=== PATIENT | female | born 1945 | race Caucasian/White ===

== ENCOUNTER → 2016-09-17 | Outpatient (CLI) | payer MEDICARE, OTHER ==
[~2016-09-17] MED LIST: AMITRYPTYLINE; ANEXSIA 7.5/3251 TA1 PO; ANTI-DIARRHEAL2 M1 PO; ATORVASTATIN CA10 MG PO; AZATHIOPRINE50 M1 PO; BACTRIM DS TABL1 TA1 PO; CARVEDILOL6.25 MG PO; DELTASONE20 MG PO; DESYREL50 MG PO; FLORASTOR250 M1 PO; KEFLEX500 MG PO; LIPITOR; LISINOPRIL5 MG; MELATIN3 MG PO; NAPROSYN500 MG PO; NAPROXEN PO; NITROSTAT0.4 MG SL; NORCO1 TAB 10/3; NORCO1 TAB 10/3 PO; OMEPRAZOLE40 M1 PO; ONDANSETRON4 MG/TAB PO; PRILOSEC; PRILOSEC20 M1 PO; PYRIDOSTIGMINE60 M2 PO
--- NOTE | ~2016-09-17 | MY11 ---
[facility] A Service [facility] RADIOLOGY TEXT RESULTS PATIENT: CALLUM OSPINA LOCATION: [facility] : 43 UNIT #: [id number] AGE: [address]: MARCELA REYNOLDS MD (INT MED) SEX: F ORDER DR: [id number] [place] [address] [id number] MR#: [id number] Acc #: [id number] NAME: CALLUM OSPINA : 1945 SEX: F STUDY DATE/TIME: 09/17/2016 14:18 UNIT: [facility] ROOM: STUDY DESCRIPTION: MY Mammogram Screening Dig Jamar Attending Physician: Marcela Reynolds M.D. Referring Physician: Marcela Reyonlds M.D. Ordering Physician: Marcela Reynolds M.D. Primary Care Physician: Marcela Reynolds M.D. MEDICAL IMAGING REPORT This report is preliminary unless electronic signature is present. EXAM Bilateral digital screening mammogram with CAD. DATE OF EXAM 09/17/2016 INDICATIONS 71-year-old female for routine screening. No reported problems. No personal or family history of breast cancer. No surgeries. TECHNIQUE CC and MLO views were obtained and reviewed with an FDA-approved CAD device. COMPARISON Comparison studies 12/07/2011, 04/06/2006. FINDINGS Breast parenchyma is composed of scattered fibroglandular densities. The pattern is unchanged. There is no new dominant nodule mass or suspicious clustered microcalcifications. Benign calcifications are present. IMPRESSION Benign screening mammogram. 1 year followup recommended. Patients over the age of 40 are entered into a reminder system with target due date for the next mammogram. A result letter will also be sent to the patient. BIRADS: 2 Benign findings. Dictated by... [facility] A Service [facility] RADIOLOGY TEXT RESULTS PATIENT: CALLUM OSPINA LOCATION: [facility] : 43 UNIT #: [id number] AGE: [address]: MARCELA REYNOLDS MD ([facility]) SEX: F ORDER DR: Reyes Garvey M.D. THIS IS AN ELECTRONICALLY VERIFIED REPORT Reyes Garvey M.D. at 09/18/2016 11:20 AM Brandie TD: 09/17/2016 20:11 JOB #: [id number] MEDICAL IMAGING REPORT
== END | disposition home or self-care (01) ==
LOC: SMAM 07:40
DX: Z12.31 Encounter for screening mammogram for malignant neoplasm of breast (principal)
CPT/HCPCS: G0202

== ENCOUNTER → 2017-03-14 | Outpatient (CLI) | payer MEDICARE, OTHER ==
--- NOTE | ~2017-03-14 | US37 ---
[facility] A Service of [facility] RADIOLOGY TEXT RESULTS PATIENT: CALLUM OSPINA LOCATION: [facility] : 43 UNIT #: [id number] AGE: [address]: MARCELA REYNOLDS MD (INT MED) SEX: F ORDER DR: [id number] [address] [address] [id number] O MR#: [id number] Acc #: [id number] NAME: CALLUM OSPINA : 1945 SEX: F STUDY DATE/TIME: 03/14/2017 14:13 UNIT: [facility] ROOM: STUDY DESCRIPTION: US Carotid W/Doppler Bilateral Attending Physician: Marcela Reynolds M.D. Referring Physician: Marcela Reynolds M.D. Ordering Physician: Marcela Reynolds M.D. Primary Care Physician: Marcela Reynolds M.D. MEDICAL IMAGING REPORT This report is preliminary unless electronic signature is present. EXAM Bilateral carotid duplex. HISTORY Carotid artery stenosis. FINDINGS Duplex imaging of the carotid arteries was performed. The right common carotid artery is patent. Heterogeneous mild plaque is seen in the right internal carotid artery. Velocity in the right common carotid artery is 85, internal is 100 proximally, 121 midportion, and 101 distally. External is 94 cm/sec. Right ICA/CCA ratio is 1.1. On the left side, the common carotid artery is patent. Internal carotid artery is tortuous. Plaque with acoustic shadowing is seen in the left internal carotid artery. Velocity in the left common carotid is 93, internal is 214 proximally, 158 midportion, and 190 distally. External is 144 cm/sec. Left ICA/CCA ratio is 2.3. Antegrade flow is seen in the right and left vertebral arteries. IMPRESSION Plaque with less than 50% stenosis is seen in the right internal carotid artery. Plaque with 50% to 69% stenosis is seen in the left internal carotid artery which is tortuous also. Antegrade flow is seen in the right and left vertebral arteries. Dictated by... [facility] A Service of [facility] RADIOLOGY TEXT RESULTS PATIENT: CALLUM OSPINA LOCATION: [facility] : 43 UNIT #: [id number] AGE: [address]: MARCELA REYNOLDS MD (INT MED) SEX: F ORDER DR: Chris Lopez M.D. THIS IS AN ELECTRONICALLY VERIFIED REPORT Chris Lopez M.D. at 03/16/2017 9:59 AM /sophie TD: 03/14/2017 22:52 JOB #: [id number] MEDICAL IMAGING REPORT Page 1 of 1
== END | disposition home or self-care (01) ==
LOC: SNIV 03-11 13:30
DX: I65.22 Occlusion and stenosis of left carotid artery (principal); I65.23 Occlusion and stenosis of bilateral carotid arteries
CPT/HCPCS: 93880